=== PATIENT | male | born 1970 | race Caucasian/White ===

== ENCOUNTER 2021-07-23 22:16 | Emergency (ER) | payer OTHER ==
[~2021-07-23] VITALS: Ht 172.7 cm; Wt 114.0 kg
[2021-07-23] MEDS ORDERED: NITROGLYCERIN 0.4MG TABLET SL SL STA (23:04)
[2021-07-23 23:27] LABS: BASOPHILS % 0.3 % (0.0-2.0); EOSINOPHILS % 1.9 % (0.0-5.0); HEMATOCRIT. 40.7 % (42.0-52.0); HEMOGLOBIN. 13.6 g/dL (14.0-18.0); LYMPHOCYTES % 37.4 % (20.0-50.0); MEAN CORPUSCULAR HEMOGLOBIN 28.1 pg (28.0-32.0); MEAN CORPUSCULAR VOLUME 83.9 fL (80.0-94.0); MEAN PLATELET VOLUME 6.5 fl (7.4-10.4); MONOCYTES % 8.2 % (2.0-8.0); NEUTROPHILS % 52.2 % (40.0-76.0); PLATELET 339 x1000/uL (130-400); RED BLOOD CELL COUNT 4.85 mill/uL (4.7-6.1); RED CELL DISTRIBUTION WIDTH 13.7 % (11.6-14.6)
[2021-07-23 23:34] LABS: CHLORIDE 105 mEq/L (98-107)
[2021-07-24 01:20] VITALS: BP 151/98
== END 2021-07-24 01:20 | disposition short-term general hospital (02) ==
LOC: ER 22:16
DX: R07.89 Other chest pain (principal); E11.9 Type 2 diabetes mellitus without complications; E78.00 Pure hypercholesterolemia, unspecified; I10 Essential (primary) hypertension; Z20.822 Contact with and (suspected) exposure to COVID-19
CPT/HCPCS: 36415; 71045; 80053; 83880; 84484; 85025; 85379; 87426; 93005; 99285